=== PATIENT | female | born 1995 | race Caucasian/White ===

== ENCOUNTER 2016-09-24 19:12 | Emergency (ER) | payer BC, OTHER ==
[2016-09-24] MEDS ORDERED: Ondansetron 4 MG/2 ML SDV IV ONE (19:56)
[2016-09-24] MEDS ORDERED: Sodium Chloride 0.9% 1,000 ML IV ONE (19:56)
[2016-09-24] MEDS ORDERED: Ketorolac 30 MG/ML SDV IVPUSH ONE (19:56)
[2016-09-24] MEDS ORDERED: Iopamidol 612 MG/ML 100 ML Bottle IVPUSH ONE (20:08)
--- NOTE | 2016-09-24 20:09 | EDM.PDOC ---
ED HPI GENERAL MEDICAL PROBLEM - General Chief Complaint: Genitourinary Problem Stated Complaint: PAINS IN BUTTOCK TO STOMACH, [id number] Time Seen by Provider: 09/24/16 20:04 Source of Information: Reports: Patient History Limitations: Reports: No Limitations - History of Present Illness INITIAL COMMENTS - FREE TEXT/NARRATIVE: pain to right jil , hip radiating to RLQ since noon nausea. LMMP 08/09, attributes late menses due to stress. Prior GB surgery. Last BM last josé manuel. Pressure with urination. Pain constant to right flank shooting sharp to right lower quad. Onset: Today, Sudden Duration: Colic, Constant, Getting Worse Location: Reports: Abdomen, Back Quality: Reports: Pressure, Sharp, Stabbing Severity: Moderate Right Lower Back Pain Score (Numeric/FACES): 9 - Related Data Allergies Allergy/AdvReac Type Severity Reaction Status Date / Time No Known Allergies Allergy Verified 09/24/16 19:16 Home Meds: Home Meds Albuterol [Ventolin HFA] 1 puff INH Q4H PRN 05/23/14 [History] Past Medical History - Past Health History Medical/Surgical History: Denies Medical/Surgical History Respiratory History: Reports: Asthma Gastrointestinal History: Reports: Cholelithiasis ESL PROFESSOR History: Reports: Polycystic Ovaries Endocrine/Metabolic History: Reports: Obesity/BMI 30+ - Infectious Disease History Infectious Disease History: Reports: Chicken Pox - Past Surgical History Head Surgeries/Procedures: Reports: None GI Surgical History: Reports: Cholecystectomy Endocrine Surgical History: Reports: None Social & Family History - Family History Family Medical History: Noncontributory - Tobacco Use Smoking Status *Q: Current Some Day Smoker Years of Tobacco use: 4 Packs/Tins Daily: 0.3 Used Tobacco, but Quit: No Second Hand Smoke Exposure: Yes - Caffeine Use Caffeine Use: Reports: Coffee - Alcohol Use Days Per Week of Alcohol Use: 0 - Recreational Drug Use Recreational Drug Use: No - Sexual History Sexual History: Reports: Sexually Active - Living Situation & Occupation Living situation: Reports: , with Spouse Occupation: Employed ED ROS GENERAL - Review of Systems Review Of Systems: See Below Constitutional: Reports: Decreased Appetite HEENT: Reports: No Symptoms Respiratory: Reports: No Symptoms Cardiovascular: Reports: No Symptoms : Reports: Dysuria (pressure), Irregular Menses (relates to stress) Musculoskeletal: Reports: No Symptoms Skin: Reports: No Symptoms Neurological: Reports: No Symptoms ED EXAM, RENAL/ - Physical Exam Exam: See Below Exam Limited By: No Limitations General Appearance: Alert, Moderate Distress Eye Exam: Bilateral Eye: EOMI, PERRL Ears: Normal External Exam Nose: Normal Inspection Throat/Mouth: Normal Inspection Head: Atraumatic, Normocephalic Neck: Normal Inspection Respiratory/Chest: No Respiratory Distress, Lungs Clear, Normal Breath Sounds Cardiovascular: Regular Rate, Rhythm GI/Abdominal: Normal Bowel Sounds, Soft, Tender (RLQ) Back Exam: CVA Tenderness (R) Extremities: Normal Inspection, Normal Range of Motion Neurological: Alert, Oriented Psychiatric: Normal Affect, Normal Mood Skin Exam: Warm, Dry, Intact, Normal Color, Tattoo(s) Course - Vital Signs Last Recorded V/S: Last Vital Signs Temp 98.0 F 09/24/16 20:58 Pulse 66 09/24/16 20:58 Resp 20 09/24/16 20:58 BP 103/57 L 09/24/16 20:58 Pulse Ox 99 09/24/16 20:58 - Orders/Labs/Meds Labs: Laboratory Tests 09/24/16 09/24/16 09/24/16 Range/Units 19:22 19:22 20:08 WBC 12.7 H (5.0-10.0) 10^3/uL RBC 4.25 (4.2-5.4) 10^6/uL Hgb 13.2 (12.0-16.0) g/dL Hct 39.6 (37.0-47.0) % MCV 93.2 (80-100) fL MCH 31.1 (27.0-34.0) pg MCHC 33.3 (33.0-35.0) g/dL Plt Count 259 (150-450) 10^3/uL Neut % (Auto) 60.7 (42.2-75.2) % Lymph % (Auto) 27.9 (20.5-50.1) % [place] % (Auto) 7.6 (2-8) % Eos % (Auto) 3.4 H (1.0-3.0) % Baso % (Auto) 0.4 (0.0-1.0) % Sodium (135-145) mmol/L Potassium (3.6-5.0) mmol/L Chloride (101-111) mmol/L Carbon Dioxide (21.0-31.0) mmol/L Anion Gap BUN (7-18) mg/dL Creatinine (0.6-1.3) mg/dL Est Cr Clr Drug Dosing mL/min Estimated GFR (MDRD) BUN/Creatinine Ratio Glucose (74-105) mg/dL Calcium (8.4-10.2) mg/dl Total Bilirubin (0.2-1.0) mg/dL AST (10-42) IU/L ALT (10-60) IU/L Alkaline Phosphatase (42-121) IU/L Total Protein (6.7-8.2) g/dl Albumin (3.2-5.5) g/dl Globulin Albumin/Globulin Ratio Urine Color Yellow (YELLOW) Urine Appearance Slightly cloudy (CLEAR) Urine pH 5.5 (5.0-9.0) Ur Specific [place] >= 1.030 (1.005-1.030) Urine Protein Negative (NEGATIVE) Urine Glucose (UA) Negative (NEGATIVE) Urine Ketones Trace H (NEGATIVE) Urine Occult Blood Moderate H (NEGATIVE) Urine Nitrite Negative (NEGATIVE) Urine Bilirubin Negative (NEGATIVE) Urine Urobilinogen 0.2 (0.2-1.0) mg/dL Ur Leukocyte Esterase Trace H (NEGATIVE) Urine RBC 30-40 H /HPF Urine WBC 0-5 (0-5/HPF) /HPF Ur Epithelial Cells Moderate H /HPF Urine Bacteria Many H (0-FEW/HPF) /HPF Urinalysis Comment Urine HCG, Qual Negative 09/24/16 Range/Units 20:08 WBC (5.0-10.0) 10^3/uL RBC (4.2-5.4) 10^6/uL Hgb (12.0-16.0) g/dL Hct (37.0-47.0) % MCV (80-100) fL MCH (27.0-34.0) pg MCHC (33.0-35.0) g/dL Plt Count (150-450) 10^3/uL Neut % (Auto) (42.2-75.2) % Lymph % (Auto) (20.5-50.1) % [place] % (Auto) (2-8) % Eos % (Auto) (1.0-3.0) % Baso % (Auto) (0.0-1.0) % Sodium 140 (135-145) mmol/L Potassium 3.7 (3.6-5.0) mmol/L Chloride 106 (101-111) mmol/L Carbon Dioxide 25.0 (21.0-31.0) mmol/L Anion Gap 12.7 BUN 14 (7-18) mg/dL Creatinine 0.8 (0.6-1.3) mg/dL Est Cr Clr Drug Dosing 94.44 mL/min Estimated GFR (MDRD) > 60 BUN/Creatinine Ratio 17.50 Glucose 98 (74-105) mg/dL Calcium 9.1 (8.4-10.2) mg/dl Total Bilirubin 1.0 (0.2-1.0) mg/dL AST 15 (10-42) IU/L ALT 11 (10-60) IU/L Alkaline Phosphatase 58 (42-121) IU/L Total Protein 6.8 (6.7-8.2) g/dl Albumin 4.1 (3.2-5.5) g/dl Globulin 2.7 Albumin/Globulin Ratio 1.52 Urine Color (YELLOW) Urine Appearance (CLEAR) Urine pH (5.0-9.0) Ur Specific [place] (1.005-1.030) Urine Protein (NEGATIVE) Urine Glucose (UA) (NEGATIVE) Urine Ketones (NEGATIVE) Urine Occult Blood (NEGATIVE) Urine Nitrite (NEGATIVE) Urine Bilirubin (NEGATIVE) Urine Urobilinogen (0.2-1.0) mg/dL Ur Leukocyte Esterase (NEGATIVE) Urine RBC /HPF Urine WBC (0-5/HPF) /HPF Ur Epithelial Cells /HPF Urine Bacteria (0-FEW/HPF) /HPF Urinalysis Comment Urine HCG, Qual Meds: Medications Discontinued Medications Generic Name Dose Route Start Last Admin Trade Name Freq PRN Reason Stop Dose Admin Hydrocodone Bitart/Acetaminophen Confirm 09/24/16 21:43 09/24/16 22:51 [place] 325-10 Mg Administered 09/24/16 21:44 2 tab Dose Administration 2 tab .ROUTE .STK-MED ONE Sodium Chloride 1,000 mls @ 999 mls/hr 09/24/16 19:56 09/24/16 20:11 Normal Saline IV 09/24/16 20:56 999 mls/hr .BOLUS ONE Administration Iopamidol 100 ml 09/24/16 20:08 09/24/16 20:26 Isovue-300 (61%) IVPUSH 09/24/16 20:09 100 ml ONETIME ONE Administration Ketorolac Tromethamine 30 mg 09/24/16 19:56 09/24/16 20:13 Toradol IVPUSH 09/24/16 19:57 30 mg ONETIME ONE Administration Magnesium Citrate Confirm 09/24/16 21:43 09/24/16 22:51 Citrate Of Magnesia Administered 09/24/16 21:44 296 ml Dose Administration 296 ml .ROUTE .STK-MED ONE Ondansetron HCl 4 mg 09/24/16 19:56 09/24/16 20:11 Zofran IV 09/24/16 19:57 4 mg ONETIME ONE Administration - Radiology Interpretation Free Text/Narrative:: RIght ovarian cyst, increased fecal content, possible urethral diverticulum vs Anderson cyst (unchanged from previous CT) - Re-Assessments/Exams Free Text/Narrative Re-Assessment/Exam: 09/24/16 21:43 Ct findings discussed with patient. Pain currently improved from presentation. Resting quietly. Departure - Departure Time of Disposition: 21:44 Disposition: Home, Self-Care 01 Condition: Fair Clinical Impression: Right ovarian cyst, Hematuria Abdominal pain Qualifiers: Abdominal location: right lower quadrant Qualified Code(s): R10.31 - Right lower quadrant pain Constipation Qualifiers: Constipation type: unspecified constipation type Qualified Code(s): K59.00 - Constipation, unspecified - Discharge Information Referrals: PCP,None [Primary Care Provider] - Forms: ED Department Discharge Additional Instructions: one bottle magnesium Citrate tonight increase fruit and fiber in diet follow up in clinic one week to recheck urine hydrocodone 10/325 one every 6 hours as needed for severe abdominal pain #2
[2016-09-24 20:39] LABS: CHLORIDE,CL 106 mmol/L (101-111); SODIUM,NA 140 mmol/L (135-145)
[2016-09-24 20:58] VITALS: BP 103/57
[2016-09-24] MEDS ORDERED: Acetaminophen/HYDROcodone 325-10 MG Tab ONE (21:43)
[2016-09-24] MEDS ORDERED: Magnesium Citrate Solution 296 ML Bottle ONE (21:43)
== END 2016-09-24 21:55 | disposition home or self-care (01) ==
LOC: DL.ED 19:12
DX: N83.201 Unspecified ovarian cyst, right side (principal); R31.9 Hematuria, unspecified; E66.9 Obesity, unspecified; J45.909 Unspecified asthma, uncomplicated; F17.210 Nicotine dependence, cigarettes, uncomplicated; Z90.49 Acquired absence of other specified parts of digestive tract; K59.00 Constipation, unspecified
CPT/HCPCS: 36415; 74178; 80053; 81001; 81025; 85025; 96361; 96374; 96375; 99284; A9270; J1885; J2405; J7030; Q9967

== ENCOUNTER 2017-04-01 09:21 | Emergency (ER) | payer BC ==
[2017-04-01 09:33] VITALS: BP 130/73
--- NOTE | 2017-04-01 09:58 | EDM.PDOC ---
ED HPI GENERAL MEDICAL PROBLEM - General Chief Complaint: Back Pain or Injury Stated Complaint: PAIN IN BACK GOING DOWN BOTH LEGS Time Seen by Provider: 04/01/17 09:58 Source of Information: Reports: Patient, Old Records, RN, RN Notes Reviewed History Limitations: Reports: No Limitations - History of Present Illness INITIAL COMMENTS - FREE TEXT/NARRATIVE: Arrives from home by POV with c/o right low back pain sustained last evening when pt's 100lb niece jumped on her back unexpectedly. Pt reports feeling of muscle spasms in the low back R>L with pain that radiate up to the Rt flank area , and a tingling burning pain the radiates down both legs R>L. Denies loss of bowel or bladder control, saddle area numbness, or motor weakness. She reports a history of low back injury and pain from several years ago, which got better over time without surgery but does "flare up" once in a while. 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) (no treatments) Right Flank Pain Score (Numeric/FACES): 10 - Related Data Allergies Allergy/AdvReac Type Severity Reaction Status Date / Time No Known Allergies Allergy Verified 09/24/16 19:16 Home Meds: Home Meds Albuterol [Ventolin HFA] 1 puff INH Q4H PRN 05/23/14 [History] Past Medical History - Past Health History Medical/Surgical History: Denies Medical/Surgical History Respiratory History: Reports: Asthma Gastrointestinal History: Reports: Cholelithiasis DOCTOR OF CHIROPRACTIC History: Reports: Polycystic Ovaries Musculoskeletal History: Reports: Other (See Below) (low back pain) Endocrine/Metabolic History: Reports: Obesity/BMI 30+ - Infectious Disease History Infectious Disease History: Reports: Chicken Pox - Past Surgical History Head Surgeries/Procedures: Reports: None GI Surgical History: Reports: Cholecystectomy Endocrine Surgical History: Reports: None Social & Family History - Family History Family Medical History: Noncontributory - Tobacco Use Smoking Status *Q: Current Every Day Smoker Years of Tobacco use: 5 Packs/Tins Daily: 0.5 Used Tobacco, but Quit: No Second Hand Smoke Exposure: Yes - Caffeine Use Caffeine Use: Reports: Soda - Alcohol Use Days Per Week of Alcohol Use: 0 - Recreational Drug Use Recreational Drug Use: No - Sexual History Sexual History: Reports: Sexually Active - Living Situation & Occupation Living situation: Reports: , with Spouse Occupation: Employed ED ROS GENERAL - Review of Systems Review Of Systems: ROS reveals no pertinent complaints other than HPI. ED EXAM,LOWER BACK PAIN/INJURY - Physical Exam Exam: See Below Exam Limited By: No Limitations General Appearance: Alert, WD/WN, No Apparent Distress Head: Atraumatic, Normocephalic Neck: Normal Inspection, Supple, Non-Tender, Full Range of Motion Respiratory/Chest: No Respiratory Distress, Lungs Clear, Normal Breath Sounds, No Accessory Muscle Use, Chest Non-Tender Cardiovascular: Normal Peripheral Pulses, Regular Rate, Rhythm GI/Abdominal: Normal Bowel Sounds, Soft, Non-Tender, No Distention, No Abnormal Bruit (Female) Exam: Deferred Rectal (Female) Exam: Deferred Back Exam: CVA Tenderness (R) (mild), Decreased Range of Motion (Lumbar, L/S jct ), Muscle Spasm (lumbar region R>L), Paraspinal Tenderness (lumbar R>L, worse at the Rt SI joint region), Other (no visible bruising or swelling, skin is intact). No: CVA Tenderness (L), Vertebral Tenderness Extremities: Normal Inspection, Normal Range of Motion, Non-Tender, No Pedal Edema, Normal Capillary Refill Neurological: Alert, Normal Mood/Affect, Normal Dorsiflexion, CN II-XII Intact, Normal Plantar Flexion, Normal Reflexes, No Motor/Sensory Deficits, Oriented x 3 , Other (antalgic gait due to low back pain) Psychiatric: Normal Affect, Normal Mood Skin Exam: Warm, Dry, Intact, Normal Color, No Rash Course - Vital Signs Last Recorded V/S: Last Vital Signs Temp 36.4 C 04/01/17 09:31 Pulse 100 04/01/17 09:31 Resp 20 04/01/17 09:31 BP 130/73 04/01/17 09:31 Pulse Ox 100 04/01/17 09:31 - Orders/Labs/Meds Orders: Active Orders 24 hr Category Date Time Status Lumbar Spine 2 or 3V [CR] Urgent Exams 04/01/17 10:29 Taken Labs: Laboratory Tests 04/01/17 04/01/17 04/01/17 Range/Units 10:02 10:02 10:02 Urine Color Yellow (YELLOW) Urine Appearance Slightly cloudy (CLEAR) Urine pH 5.5 (5.0-9.0) Ur Specific [place] 1.025 (1.005-1.030) Urine Protein Negative (NEGATIVE) Urine Glucose (UA) Negative (NEGATIVE) Urine Ketones Negative (NEGATIVE) Urine Occult Blood Moderate H (NEGATIVE) Urine Nitrite Negative (NEGATIVE) Urine Bilirubin Negative (NEGATIVE) Urine Urobilinogen 0.2 (0.2-1.0) mg/dL Ur Leukocyte Esterase Negative (NEGATIVE) Urine RBC 10-20 H /HPF Urine WBC 0-5 (0-5/HPF) /HPF Ur Epithelial Cells Many H /HPF Urine Bacteria Few (0-FEW/HPF) /HPF Urine Mucus Rare /LPF Urine Other See note Urine HCG, Qual Negative Urine Opiates Screen Negative (NEGATIVE) Ur Oxycodone Screen Negative (NEGATIVE) Urine Methadone Screen Negative (NEGATIVE) Ur Barbiturates Screen Negative (NEGATIVE) U Tricyclic Antidepress Positive H (NEGATIVE) Ur Phencyclidine Scrn Negative (NEGATIVE) Ur Amphetamine Screen Negative (NEGATIVE) U Methamphetamines Scrn Negative (NEGATIVE) Urine MDMA Screen Negative (NEGATIVE) U Benzodiazepines Scrn Negative (NEGATIVE) Urine Cocaine Screen Negative (NEGATIVE) U Marijuana (THC) Screen Negative (NEGATIVE) Meds: Medications Discontinued Medications Generic Name Dose Route Start Last Admin Trade Name Freq PRN Reason Stop Dose Admin Cyclobenzaprine HCl 10 mg 04/01/17 10:07 04/01/17 10:20 Flexeril PO 04/01/17 10:08 10 mg ONETIME ONE Administration Ketorolac Tromethamine 60 mg 04/01/17 10:06 04/01/17 10:21 Toradol IM 04/01/17 10:07 60 mg ONETIME ONE Administration - Radiology Interpretation Free Text/Narrative:: Xray L-spine: Spondylosis (fracture) w/associated anterolisthesis of L5 at the L5-S1 level which was present on prior studies from last year per Rad. report. Departure - Departure Time of Disposition: 11:19 Disposition: Home, Self-Care 01 Condition: Good Clinical Impression: Lumbosacral spondylosis with radiculopathy, Bacterial vaginosis Acute lumbosacral myofascial strain Qualifiers: Encounter type: initial encounter Qualified Code(s): S39.012A - Strain of muscle, fascia and tendon of lower back, initial encounter Fracture of lumbar spine without lesion of spinal cord with nonunion Qualifiers: Fracture type: closed Qualified Code(s): S32.009K - Unspecified fracture of unspecified lumbar vertebra, subsequent encounter for fracture with nonunion - Discharge Information Instructions: Lumbar Fracture, Lumbosacral Radiculopathy, Bacterial Vaginosis, [id number] Forms: ED Department Discharge Additional Instructions: Rx: Flagyl 500mg Rx: Cyclobenzaprine 10mg *Do not drive or work while under the influence of this medication. Rx: Hydrocodone APAP 5mg/325mg *Do not drive or work while under the influence of this medication. Rx: Decadron 4mg Light activity as tolerated. Follow up in clinic next week for recheck. - My Orders Last 24 Hours: My Active Orders 04/01/17 10:29 Lumbar Spine 2 or 3V [CR] Urgent - Assessment/Plan Last 24 Hours: My Active Orders 04/01/17 10:29 Lumbar Spine 2 or 3V [CR] Urgent
[2017-04-01] MEDS ORDERED: Ketorolac 30 MG/ML SDV IM ONE (10:06)
[2017-04-01] MEDS ORDERED: Cyclobenzaprine 10 MG Tab PO ONE (10:07)
--- NOTE | 2017-04-01 11:14 | CR ---
Clinical history: 21-year-old female low back pain associated with injury. Interpretation: Abnormal. Spondylosis (fracture) with associated anterolisthesis (dislocation L5 vertebra) at the lowest L5-S1 level. No sign of pathologic skeletal lesion, other lumbar fracture or dislocation. Normal intervertebral di sc spacing. Symmetric normal-appearing SI and hip joints. (Surgical clips gallbladder fossa RUQ)
== END 2017-04-01 11:42 | disposition home or self-care (01) ==
LOC: DL.ED 09:21
DX: S32.009K Unspecified fracture of unspecified lumbar vertebra, subsequent encounter for fracture with nonunion (principal); S39.012A Strain of muscle, fascia and tendon of lower back, initial encounter; M47.27 Other spondylosis with radiculopathy, lumbosacral region; N76.0 Acute vaginitis; F17.210 Nicotine dependence, cigarettes, uncomplicated; X50.9XXA Other and unspecified overexertion or strenuous movements or postures, initial encounter
CPT/HCPCS: 72100; 80305; 81001; 81025; 96372; 99283; A9270; J1885

== ENCOUNTER 2017-04-15 13:37 | Emergency (ER) | payer BC ==
[2017-04-15 14:14] VITALS: BP 113/78
--- NOTE | 2017-04-15 14:54 | EDM.PDOC ---
ED HPI GENERAL MEDICAL PROBLEM - General Chief Complaint: Upper Extremity Injury/Pain Stated Complaint: FELL DOWN STEPS. RT SHOULDER/BACK Time Seen by Provider: 04/15/17 14:40 Source of Information: Reports: Patient History Limitations: Reports: No Limitations - History of Present Illness INITIAL COMMENTS - FREE TEXT/NARRATIVE: This 21 yo female patient reports to the ED with lower back pain and right shoulder pain due to a fall down 6 steps. The patient reports she was "just walking" down the steps, missed a step and fell down the steps at 1318. The patient has chronic lower back pain with an acute increase in her pain after the fall. Onset: Today Onset Date: 04/15/17 Onset Time: 13:20 Duration: Constant Location: Reports: Back, Upper Extremity, Right Quality: Reports: Ache, Sharp Severity: Moderate Improves with: Reports: None Worsens with: Reports: None Associated Symptoms: Reports: No Other Symptoms Right Shoulder Pain Score (Numeric/FACES): 8 Lower Back Pain Score (Numeric/FACES): 10 - Related Data Allergies Allergy/AdvReac Type Severity Reaction Status Date / Time No Known Allergies Allergy Verified 04/15/17 14:14 Home Meds: Home Meds Albuterol [Ventolin HFA] 1 puff INH Q4H PRN 05/23/14 [History] Past Medical History - Past Health History Medical/Surgical History: Denies Medical/Surgical History Respiratory History: Reports: Asthma Gastrointestinal History: Reports: Cholelithiasis 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 Musculoskeletal History: Reports: Other (See Below) Other Musculoskeletal History: L5 fracture Endocrine/Metabolic History: Reports: Obesity/BMI 30+ - Infectious Disease History Infectious Disease History: Reports: Chicken Pox - Past Surgical History Head Surgeries/Procedures: Reports: None GI Surgical History: Reports: Cholecystectomy Endocrine Surgical History: Reports: None Social & Family History - Family History Family Medical History: Noncontributory - Tobacco Use Smoking Status *Q: Current Every Day Smoker Years of Tobacco use: 5 Packs/Tins Daily: 0.3 Used Tobacco, but Quit: No Second Hand Smoke Exposure: Yes - Caffeine Use Caffeine Use: Reports: None - Alcohol Use Days Per Week of Alcohol Use: 0 - Recreational Drug Use Recreational Drug Use: No - Sexual History Sexual History: Reports: Sexually Active - Living Situation & Occupation Living situation: Reports: , with Spouse Occupation: Employed Review of Systems - Review of Systems Review Of Systems: ROS reveals no pertinent complaints other than HPI. ED EXAM, GENERAL - Physical Exam Exam: See Below Exam Limited By: No Limitations General Appearance: Alert, WD/WN, Moderate Distress, Obese Eye Exam: Bilateral Eye: EOMI, Normal Inspection, PERRL Ears: Normal External Exam, Normal Canal, Hearing Grossly Normal, Normal TMs Nose: Normal Inspection, Normal Mucosa, No Blood Throat/Mouth: Normal Inspection, Normal Lips, Normal Teeth, Normal Gums, Normal Oropharynx, Normal Voice, No Airway Compromise Head: Atraumatic, Normocephalic Neck: Normal Inspection, Supple, Non-Tender, Full Range of Motion Respiratory/Chest: No Respiratory Distress, Lungs Clear, Normal Breath Sounds, No Accessory Muscle Use, Chest Non-Tender Cardiovascular: Normal Peripheral Pulses, Regular Rate, Rhythm, No Edema, No Gallop, No JVD, No Murmur, No Rub GI/Abdominal: Normal Bowel Sounds, Soft, Non-Tender, No Organomegaly, No Distention, No Abnormal Bruit, No Mass (Female) Exam: Deferred Rectal (Female) Exam: Deferred Back Exam: Normal Inspection, Decreased Range of Motion, Paraspinal Tenderness, Vertebral Tenderness (lumbar spine) Extremities: Arm Pain (right shoulder pain) Neurological: Alert, Oriented, CN II-XII Intact, Normal Cognition, Normal Reflexes, No Motor/Sensory Deficits Psychiatric: Normal Affect, Normal Mood Skin Exam: Warm, Dry, Intact, Normal Color, No Rash Lymphatic: No Adenopathy Course - Vital Signs Last Recorded V/S: Last Vital Signs Temp 37.3 C 04/15/17 14:00 Pulse 85 04/15/17 14:00 Resp 16 04/15/17 14:00 BP 113/78 04/15/17 14:00 Pulse Ox 98 04/15/17 14:00 - Orders/Labs/Meds Orders: Active Orders 24 hr Category Date Time Status DME for Discharge [COMM] Urgent Oth 04/15/17 15:44 Ordered Departure - Departure Time of Disposition: 15:44 Disposition: Home, Self-Care 01 Condition: Fair Clinical Impression: Fall from ground level, Acute low back pain due to trauma Right shoulder strain Qualifiers: Encounter type: initial encounter Qualified Code(s): S46.911A - Strain of unspecified muscle, fascia and tendon at shoulder and upper arm level, right arm , initial encounter - Discharge Information Instructions: Back Pain, Adult, [id number], Shoulder Sprain Forms: ED Department Discharge Care Plan Goals: The patient was advised of the examination and x-ray results during the visit. The patient was encouraged to rest and ice the area. The patient was placed in a sling for support of her right arm and shoulder. The patient may take Tylenol or ibuprofen for temporary symptom relief. If the patient has any additional symptoms or concerns, the patient should follow-up with her primary care facility or return to the emergency department. - My Orders Last 24 Hours: My Active Orders 04/15/17 15:44 DME for Discharge [COMM] Urgent - Assessment/Plan Last 24 Hours: My Active Orders 04/15/17 15:44 DME for Discharge [COMM] Urgent
--- NOTE | 2017-04-15 15:27 | CR ---
Clinical history: 21-year-old female injured in fall downstairs. Interpretation: AP lateral lumbosacral spine confirms L5 spondylolysis (fracture) with subtle anterio r dislocation or spondylolisthesis. No new lumbar fracture or dislocation. Relative narrowing of the lowest L5-S1 disc space. Homogeneous normal bone density and no sign of pathologic skeletal lesion, other lumbar fracture, dis location or intervertebral disc space narrowing proximally. Symmetric spacing normal-appearing SI and hip joints. Note: No change since recent in film exam 01 April 2017 and the L5 pars defect with L5 anterolisthes is was present on previous sagittal CT images 24 September 2016 and 12 February 2016 i.e. pre-existing L5 spondylolysis/spondylolisthesis.
--- NOTE | 2017-04-15 15:28 | CR ---
Clinical history: 21-year-old female injured fall Interpretation: 2 views left shoulder confirms lateral flattening or Hill-Sachs notch head of the rig ht humerus. No sign of acute fracture, acromioclavicular separation or humeral dislocation. Right lung apex is clear.
[2017-04-15] MEDS ORDERED: Morphine 4 MG/ML Syringe ONE (15:49)
== END 2017-04-15 15:56 | disposition home or self-care (01) ==
LOC: DL.ED 13:37
DX: S46.911A Strain of unspecified muscle, fascia and tendon at shoulder and upper arm level, right arm, initial encounter (principal); M54.5 Low back pain; F17.210 Nicotine dependence, cigarettes, uncomplicated; W10.9XXA Fall (on) (from) unspecified stairs and steps, initial encounter
CPT/HCPCS: 72100; 73030-RT; 99284

== ENCOUNTER 2017-05-06 08:45 | Emergency (ER) | payer BC ==
--- NOTE | 2017-05-06 08:50 | EDM.PDOC ---
ED HPI GENERAL MEDICAL PROBLEM - General Chief Complaint: Fever Stated Complaint: FLU Time Seen by Provider: 05/06/17 08:50 Source of Information: Reports: Patient, RN, RN Notes Reviewed History Limitations: Reports: No Limitations - History of Present Illness INITIAL COMMENTS - FREE TEXT/NARRATIVE: C/O onset of cough and fever last night with gen. body aches. Pt was exposed to a child with confirmed Influenza A this last week. Denies sore throat, rash, N/V /D/C, abd. pain, or difficulty breathing. Onset: Sudden Onset Date: 05/05/17 Duration: Constant, Getting Worse Location: Reports: Generalized Quality: Reports: Ache Severity: Moderate Improves with: Reports: None Worsens with: Reports: None Associated Symptoms: Reports: No Other Symptoms Generalized Pain Score (Numeric/FACES): 7 - Related Data Allergies Allergy/AdvReac Type Severity Reaction Status Date / Time No Known Allergies Allergy Verified 05/06/17 08:58 Home Meds: Home Meds Albuterol [Ventolin HFA] 1 puff INH Q4H PRN 05/23/14 [History] Past Medical History - Past Health History Medical/Surgical History: Denies Medical/Surgical History Respiratory History: Reports: Asthma Gastrointestinal History: Reports: Cholelithiasis 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 Musculoskeletal History: Reports: Other (See Below) Other Musculoskeletal History: L5 fracture Endocrine/Metabolic History: Reports: Obesity/BMI 30+ - Infectious Disease History Infectious Disease History: Reports: Chicken Pox - Past Surgical History Head Surgeries/Procedures: Reports: None GI Surgical History: Reports: Cholecystectomy Endocrine Surgical History: Reports: None Social & Family History - Family History Family Medical History: Noncontributory - Tobacco Use Smoking Status *Q: Current Every Day Smoker Years of Tobacco use: 5 Packs/Tins Daily: 0.3 Used Tobacco, but Quit: No Second Hand Smoke Exposure: Yes - Caffeine Use Caffeine Use: Reports: None - Alcohol Use Days Per Week of Alcohol Use: 0 - Recreational Drug Use Recreational Drug Use: No - Sexual History Sexual History: Reports: Sexually Active - Living Situation & Occupation Living situation: Reports: , with Spouse Occupation: Employed ED ROS GENERAL - Review of Systems Review Of Systems: ROS reveals no pertinent complaints other than HPI. ED EXAM, GENERAL - Physical Exam Exam: See Below Exam Limited By: No Limitations General Appearance: Alert, WD/WN, No Apparent Distress, Other (ill, but non- toxic appearing) Eye Exam: Bilateral Eye: Normal Inspection Ears: Normal External Exam, Normal Canal, Hearing Grossly Normal, Normal TMs Nose: No Blood, Nasal Drainage (clear) Throat/Mouth: Normal Inspection, Normal Lips, Normal Teeth, Normal Gums, Normal Oropharynx, Normal Voice, No Airway Compromise Head: Atraumatic, Normocephalic Neck: Normal Inspection, Supple, Non-Tender, Full Range of Motion, Other (no nuchal rigidity). No: Lymphadenopathy (L), Lymphadenopathy (R) Respiratory/Chest: No Respiratory Distress, Lungs Clear, Normal Breath Sounds, No Accessory Muscle Use, Chest Non-Tender, Other (dry cough) Cardiovascular: Regular Rate, Rhythm, Tachycardia GI/Abdominal: Normal Bowel Sounds, Soft, Non-Tender, No Organomegaly, No Distention, No Abnormal Bruit, No Mass (Female) Exam: Deferred Rectal (Female) Exam: Deferred Back Exam: Normal Inspection. No: CVA Tenderness (L), CVA Tenderness (R) Extremities: Normal Inspection, Non-Tender. No: Joint Swelling Neurological: Alert, Oriented, CN II-XII Intact, Normal Cognition, Normal Gait, No Motor/Sensory Deficits Psychiatric: Normal Mood Skin Exam: Warm, Dry, Intact, Normal Color, No Rash Course - Vital Signs Last Recorded V/S: Last Vital Signs Temp 37.2 C 05/06/17 08:54 Pulse 101 H 05/06/17 08:54 Resp 20 05/06/17 08:54 BP 135/83 05/06/17 08:54 Pulse Ox 98 05/06/17 08:54 - Orders/Labs/Meds Orders: Active Orders 24 hr Category Date Time Status CULTURE STREP A CONFIRMATION [] Stat Lab 05/06/17 09:00 Results STREP SCRN A RAPID W CULT CONF [] Stat Lab 05/06/17 09:00 Results Labs: Influenza A/B and Rapid Strep: Negative Departure - Departure Time of Disposition: 09:56 Disposition: Home, Self-Care 01 Condition: Good Clinical Impression: Exposure to influenza, Acute viral syndrome - Discharge Information Instructions: Influenza, Adult, [id number], Adenovirus Forms: ED Department Discharge Additional Instructions: Rx: Tamiflu 75mg Use Acetaminophen (Tylenol) and/or Ibuprofen (Motrin/Advil) as needed for fevers or pain. Follow directions on bottle for dosing & precautions. Supplement fluid intake with extra water, juice until illness resolves. Follow up in clinic if not improving in 7 to 10 days. Return to ER if any breathing difficulty develops, or for any other medical emergency. - My Orders Last 24 Hours: My Active Orders 05/06/17 09:00 CULTURE STREP A CONFIRMATION [RM] Stat STREP SCRN A RAPID W CULT CONF [RM] Stat - Assessment/Plan Last 24 Hours: My Active Orders 05/06/17 09:00 CULTURE STREP A CONFIRMATION [RM] Stat STREP SCRN A RAPID W CULT CONF [RM] Stat
[2017-05-06 08:58] VITALS: BP 135/83
== END 2017-05-06 10:11 | disposition home or self-care (01) ==
LOC: DL.ED 08:45
DX: B34.9 Viral infection, unspecified (principal); Z20.828 Contact with and (suspected) exposure to other viral communicable diseases; F17.210 Nicotine dependence, cigarettes, uncomplicated
CPT/HCPCS: 87081; 87430; 87804; 99283

== ENCOUNTER 2017-07-14 07:47 | Emergency (ER) | payer BC, MEDICAID ==
[2017-07-14 08:00] VITALS: BP 134/80
--- NOTE | 2017-07-14 08:06 | EDM.PDOC ---
ED HPI GENERAL MEDICAL PROBLEM - General Chief Complaint: Upper Extremity Injury/Pain Stated Complaint: RIGHT HAND SWOLLEN/PAIN Time Seen by Provider: 07/14/17 07:55 Source of Information: Reports: Patient History Limitations: Reports: No Limitations - History of Present Illness INITIAL COMMENTS - FREE TEXT/NARRATIVE: This 21 yo female patient reports to the ED with swelling in both thumbs and both 5th fingers. The patient reports she "just woke up with this." The patient reports she is supposed to work today, but can not work like this. The patient denies any recent injuries or changes to lotions, soaps etc. The patient reports she does chew her fingernails and picks at her cuticles. The patient reports no similar symptoms in the past. The patient has not attempted any home treatments. Onset: Today Duration: Minutes: Location: Reports: Upper Extremity, Left, Upper Extremity, Right Quality: Reports: Ache, Dull Severity: Mild Improves with: Reports: None Worsens with: Reports: None Context: Reports: Other Associated Symptoms: Reports: No Other Symptoms - Related Data Allergies Allergy/AdvReac Type Severity Reaction Status Date / Time No Known Allergies Allergy Verified 05/06/17 08:58 Home Meds: Home Meds Albuterol [Ventolin HFA] 1 puff INH Q4H PRN 05/23/14 [History] Past Medical History - Past Health History Medical/Surgical History: Denies Medical/Surgical History Respiratory History: Reports: Asthma Gastrointestinal History: Reports: Cholelithiasis 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 Musculoskeletal History: Reports: Other (See Below) Other Musculoskeletal History: L5 fracture Endocrine/Metabolic History: Reports: Obesity/BMI 30+ - Infectious Disease History Infectious Disease History: Reports: Chicken Pox - Past Surgical History Head Surgeries/Procedures: Reports: None GI Surgical History: Reports: Cholecystectomy Endocrine Surgical History: Reports: None Social & Family History - Family History Family Medical History: Noncontributory - Tobacco Use Smoking Status *Q: Current Every Day Smoker Years of Tobacco use: 5 Packs/Tins Daily: 0.3 Used Tobacco, but Quit: No Second Hand Smoke Exposure: Yes - Caffeine Use Caffeine Use: Reports: None - Alcohol Use Days Per Week of Alcohol Use: 0 - Recreational Drug Use Recreational Drug Use: No - Sexual History Sexual History: Reports: Sexually Active - Living Situation & Occupation Living situation: Reports: , with Spouse Occupation: Employed Review of Systems - Review of Systems Review Of Systems: ROS reveals no pertinent complaints other than HPI. ED EXAM, GENERAL - Physical Exam Exam: See Below Exam Limited By: No Limitations General Appearance: Alert, WD/WN, No Apparent Distress Eye Exam: Bilateral Eye: EOMI, Normal Inspection, PERRL Ears: Normal External Exam, Normal Canal, Hearing Grossly Normal, Normal TMs Nose: Normal Inspection, Normal Mucosa, No Blood Throat/Mouth: Normal Inspection, Normal Lips, Normal Teeth, Normal Gums, Normal Oropharynx, Normal Voice, No Airway Compromise Head: Atraumatic, Normocephalic Neck: Normal Inspection, Supple, Non-Tender, Full Range of Motion Respiratory/Chest: No Respiratory Distress, Lungs Clear, Normal Breath Sounds, No Accessory Muscle Use, Chest Non-Tender Cardiovascular: Normal Peripheral Pulses, Regular Rate, Rhythm, No Edema, No Gallop, No JVD, No Murmur, No Rub GI/Abdominal: Normal Bowel Sounds, Soft, Non-Tender, No Organomegaly, No Distention, No Abnormal Bruit, No Mass (Female) Exam: Deferred Rectal (Female) Exam: Deferred Extremities: Normal Range of Motion, No Pedal Edema, Normal Capillary Refill Neurological: Alert, Oriented, CN II-XII Intact, Normal Cognition, Normal Gait, Normal Reflexes, No Motor/Sensory Deficits Psychiatric: Normal Affect, Normal Mood Skin Exam: Erythema, Increased Warmth (bilateral thumbs and bilateral 5th fingers), Other (The patient's fingernails were jagged (biting), the patient's cuticles were erythematous with excoriations in different stages of healing ( thumbs were worse, but 5th fingers were similar and less severe). ) Lymphatic: No Adenopathy Course - Orders/Labs/Meds Orders: Active Orders 24 hr Category Date Time Status CBC WITH AUTO DIFF [HEME] Urgent Lab 07/14/17 07:59 Ordered Departure - Departure Time of Disposition: 08:26 Disposition: Home, Self-Care 01 Condition: Fair Clinical Impression: Cellulitis of hand - Discharge Information Instructions: Cellulitis, Adult Care Plan Goals: The patient was advised of the examination and lab results during the visit. The patient was given a script for Keflex (500 mg) #30 to take 1 by mouth 3 times per day for 10 days. The patient was encouraged to avoid chewing on her nails or picking on her cuticles. If the patient has any additional symptoms or concerns, the patient should follow-up with her primary care facility or return to the emergency department. - My Orders Last 24 Hours: My Active Orders 07/14/17 07:59 CBC WITH AUTO DIFF [HEME] Urgent - Assessment/Plan Last 24 Hours: My Active Orders 07/14/17 07:59 CBC WITH AUTO DIFF [HEME] Urgent
== END 2017-07-14 08:38 | disposition home or self-care (01) ==
LOC: DL.ED 07:47
DX: L03.012 Cellulitis of left finger (principal); L03.011 Cellulitis of right finger; F17.210 Nicotine dependence, cigarettes, uncomplicated
CPT/HCPCS: 36415; 85025; 99283